=== PATIENT | male | born 1995 | race Two or more races ===

== ENCOUNTER 2022-07-13 14:51 | Emergency (ER) | payer MEDICAID, OTHER ==
[~2022-07-13] VITALS: Ht 170.2 cm; Wt 84.8 kg
[2022-07-13 17:01] VITALS: BP 123/78
[2022-07-13] MEDS ORDERED: IBUP800T27 PO (17:01)
== END 2022-07-13 17:20 | disposition home or self-care (01) ==
LOC: EDBD 14:51 → ER 14:51
DX: S93.401A Sprain of unspecified ligament of right ankle, initial encounter (principal); Z79.1 Long term (current) use of non-steroidal anti-inflammatories (NSAID); W11.XXXA Fall on and from ladder, initial encounter; Y93.89 Activity, other specified; Y92.89 Other specified places as the place of occurrence of the external cause; Y99.8 Other external cause status
CPT/HCPCS: 73610